=== PATIENT | male | born 1955 | race Two or more races ===

== ENCOUNTER 2022-11-18 05:17 | Emergency (ER) | payer OTHER ==
[~2022-11-18] VITALS: Ht 170.2 cm; Wt 70.3 kg
[2022-11-18] MEDS ORDERED: LOSARTAN POTASS50 MG PO (05:30)
[2022-11-18] MEDS ORDERED: SIMVASTATIN20 MG PO (05:30)
== END 2022-11-18 07:48 | disposition home or self-care (01) ==
LOC: ER 05:17
DX: R07.9 Chest pain, unspecified (principal); Z91.018 Allergy to other foods; E78.00 Pure hypercholesterolemia, unspecified; I10 Essential (primary) hypertension
CPT/HCPCS: 36415; 71045; 93005; 96372; 99284; J1885